=== PATIENT | male | born 1995 | race Caucasian/White ===

== ENCOUNTER 2023-08-25 09:10 | Outpatient (CLI) | payer OTHER, SELFPAY | END 2023-08-25 09:11 | disposition home or self-care (01) | PROVIDERS: PCP Family Medicine; Visit Provider Family Medicine | DX: Z13.228 Encounter for screening for other metabolic disorders (principal); Z13.220 Encounter for screening for lipoid disorders; Z13.0 Encounter for screening for diseases of the blood and blood-forming organs and certain disorders involving the immune mechanism | CPT/HCPCS: 80048; 80061; 84460; 85025 ==

== ENCOUNTER 2023-08-26 07:00 | Outpatient (CLI) | payer OTHER, SELFPAY | END 2023-08-26 07:01 | disposition home or self-care (01) | LOC: NFLDREF 09-13 08:51 | PROVIDERS: PCP Family Medicine; Referring Provider Family Medicine; Visit Provider Family Medicine | DX: E34.52 Partial androgen insensitivity syndrome (principal) | CPT/HCPCS: 89322 ==